=== PATIENT | male | born 1955 | race Caucasian/White ===

== ENCOUNTER 2021-09-11 10:00 | Emergency (ER) | payer MEDICARE, BC ==
[2021-09-11 10:14] VITALS: BP 138/92
--- NOTE | 2021-09-11 10:45 | ED Physician Documentation ---
History of Present Illness - Stated complaint Stated Complaint: LT EYE LID PX - Chief complaint Chief Complaint: Laceration - History obtained from History obtained from: Patient - History of Present Illness Timing: Today - Additonal information Additional information: 66-year-old male getting help from a friend working on his roof had a bar fall off of the roof and injured his left eyelid. He denies any change in his vision he denies any foreign body sensation to his eye. He has a small laceration to the eyelid and some swelling.He indicates he is up-to-date on his tetanus. Review of Systems Constitutional: denies: Fever Eyes: reports: Irritation. denies: Loss of vision, Decreased vision, Photophobia, Discharge Ears: denies: Ear pain Nose: denies: Congestion Throat: denies: Sore throat Respiratory: denies: Cough PD PAST MEDICAL HISTORY - Past Medical History Past Medical History: No - Past Surgical History Past Surgical History: Yes - Allergies Allergies/Adverse Reactions: Allergies Allergy/AdvReac Type Severity Reaction Status Date / Time No Known Drug Allergies Allergy Verified 09/11/21 10:14 - Social History Does the pt smoke?: No Smoking Status: Never smoker Does the pt drink ETOH?: No Does the pt have substance abuse?: No - Immunizations Immunizations are current?: Yes - POLST Patient has POLST: No PD ED PE NORMAL - Vitals Vital signs reviewed: Yes (Hypertensive mild) - General General: Alert and oriented X 3, No acute distress, Well developed/nourished - HEENT HEENT: PERRL, EOMI, Other (The globe is symmetric and without distortion of the iris. There is injection to the lateral sclera and overlying that there is a small laceration to the eyelid upper lateral. 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, No motor deficit, No sensory deficit, Normal speech Eye Opening: Spontaneous Motor: Obeys Commands Verbal: Oriented GCS Score: 15 - Psych Psych: Normal mood, Normal affect Results - Vitals Vitals: Vital Signs - 24 hr 09/11/21 10:10 Temperature 36.5 C Heart Rate 80 Respiratory 18 Rate Blood Pressure 138/92 H O2 Saturation 98 Procedures - Laceration (location) Left eyelid Length in cm: 1 Wound type: Stellate, Clean Neurovascular status: Sensory intact, Motor intact Wound preparation: Irrigated copiously NS, Wound explored, To the base Skin layer closure: Dermabond Other: Patient tolerated well, No complications, Neurovascular intact, Tetanus UTD PD MEDICAL DECISION MAKING - ED course Complexity details: considered differential, d/w patient ED course: 66-year-old male with a small laceration to the left eyelid with some swelling. No damage to the globe. This is repaired with Dermabond tolerated well. Departure - Departure Disposition: 01 Home, Self Care Clinical Impression: Eyelid laceration Qualifiers: Encounter type: initial encounter Laterality: left Qualified Code(s): S01.112A - Laceration without foreign body of left eyelid and periocular area, initial encounter Instructions: ED Laceration Facial Skin Glue Follow-Up: Your, doctor as needed [Other]
== END 2021-09-11 11:05 | disposition home or self-care (01) ==
LOC: ED 10:00
DX: S01.112A Laceration without foreign body of left eyelid and periocular area, initial encounter (principal); W20.8XXA Other cause of strike by thrown, projected or falling object, initial encounter; Y92.007 Garden or yard of unspecified non-institutional (private) residence as the place of occurrence of the external cause
CPT/HCPCS: 12011; 99281

== ENCOUNTER 2023-03-13 16:48 | Outpatient (CLI) | payer MEDICARE, BC | END 2023-03-13 23:59 | disposition critical access hospital (66) | LOC: EMS 16:48 | DX: R55 Syncope and collapse (principal); R42 Dizziness and giddiness; R25.3 Fasciculation; R32 Unspecified urinary incontinence | CPT/HCPCS: A0425; A0427 ==

== ENCOUNTER 2023-03-13 17:05 | Emergency (ER) | payer MEDICARE, BC ==
[2023-03-13] MEDS ORDERED: SODIUM CHLORIDE 0.9% 1,000 ML IV STA (17:33)
[2023-03-13] MEDS ORDERED: APIXABAN 5 MG TABLET PO STA (17:35)
[2023-03-13] MEDS ORDERED: iohexoL-300 100 ML VIAL ONE (17:42)
[2023-03-13 17:44] LABS: BASOPHILS % (AUTO) 0.4 %; EOSINOPHILS % (AUTO) 0.3 %; HCT - HEMATOCRIT 37.7 % (42.0-52.0); HGB - HEMOGLOBIN 12.4 g/dL (14.0-18.0); LYMPHOCYTES % (AUTO) 9.6 %; MEAN CORPUSCULAR HEMOGLOBIN 30.8 pg (27.0-31.0); MEAN CORPUSCULAR HGB CONC 32.9 g/dL (32.0-36.0); MEAN CORPUSCULAR VOLUME 93.8 fL (80.0-94.0); MONOCYTES # (AUTO) 1.4 10^3/uL (0.0-1.0); MONOCYTES % (AUTO) 13.5 %; NEUTROPHILS % (AUTO) 75.7 %; PLT - PLATELET COUNT 152 10^3/uL (130-450); RED BLOOD COUNT 4.02 10^6/uL (4.70-6.10); RED CELL DISTRIBUTION WIDTH 13.3 % (12.0-15.0); WHITE BLOOD COUNT 10.5 x10^3/uL (4.8-10.8)
--- NOTE | 2023-03-13 17:44 | ED Physician Documentation ---
History of Present Illness - Stated complaint Stated Complaint: SEIZURE - Chief complaint Chief Complaint: Neuro - History obtained from History obtained from: Patient, Family, EMS - History of Present Illness Timing: Today Pain level max: 0 Pain level now: 0 - Additonal information Additional information: Patient is a 68-year-old male brought in by EMS and his . He had a hip replacement yesterday at [facility]. He had been told to use a walker, stand and sit slowly and if he felt dizzy to sit down immediately. Patient had been up walking around in his kitchen when he felt lightheaded, dizzy went and sat back down in the chair and then felt his vision go down. His states that there may have been 1 to 2 seconds of jerking movements. She states he was unconscious for a few seconds. Currently asymptomatic. No fevers. No headache. No postictal period. Has never had a seizure before but has had syncopal events. No chest pain. No dyspnea. No nausea or vomiting. No sweating. Review of Systems Constitutional: denies: Fever, Chills Nose: denies: Rhinorrhea / runny nose, Congestion Throat: denies: Sore throat Cardiac: denies: Palpitations Respiratory: denies: Dyspnea, Cough GI: denies: Nausea, Vomiting, Diarrhea Skin: denies: Rash Musculoskeletal: denies: Neck pain, Back pain Neurologic: denies: Headache PD PAST MEDICAL HISTORY - Past Medical History Past Medical History: Yes Cardiovascular: High cholesterol - Past Surgical History Past Surgical History: Yes Ortho: Hip replacement - Allergies Allergies/Adverse Reactions: Allergies Allergy/AdvReac Type Severity Reaction Status Date / Time No Known Drug Allergies Allergy Verified 03/13/23 17:21 - Social History Does the pt smoke?: No Smoking Status: Never smoker Does the pt drink ETOH?: No Does the pt have substance abuse?: No - Immunizations Immunizations are current?: Yes - POLST Patient has POLST: No PD ED PE NORMAL - Vitals Vital signs reviewed: Yes - General General: Alert and oriented X 3, No acute distress, Well developed/nourished - HEENT HEENT: Atraumatic, PERRL, EOMI, Ears normal, Moist mucous membranes, Pharynx benign - Neck Neck: Supple, no meningeal sign, No bony TTP - Cardiac Cardiac: RRR, No murmur, Strong equal pulses - Respiratory Respiratory: No respiratory distress, Clear bilaterally - Abdomen Abdomen: Soft, Non tender, Non distended - Back Back: No CVA TTP, No spinal TTP - Derm Derm: Warm and dry - Extremities Extremities: No edema, No calf tenderness / cord - Neuro Neuro: Alert and oriented X 3, mental health aide 2-12 intact, No motor deficit, No sensory deficit, Normal speech Eye Opening: Spontaneous Motor: Obeys Commands Verbal: Oriented GCS Score: 15 - Psych Psych: Normal mood, Normal affect Results - Vitals Vitals: Vital Signs - 24 hr 03/13/23 03/13/23 03/13/23 17:10 18:54 21:00 Temperature 37.5 C Heart Rate 111 H 76 89 Respiratory 18 20 16 Rate Blood Pressure 152/87 H 142/89 H 136/89 H O2 Saturation 98 100 98 Oxygen O2 Source Room air - EKG (time done) 1713 EKG releavant findings:: EKG personally interpreted by author of this note. Relevant findings are: Rate: Rate (enter#) (101) Rhythm: Sinus tachycardia [place]: Normal Intervals: Prolonged [place] QRS: Normal Ischemia: Q waves (II, III, aVF), Non specific changes - Labs Labs: Laboratory Tests 03/13/23 03/13/23 03/13/23 17:35 17:35 17:35 WBC 10.5 RBC 4.02 L Hgb 12.4 L Hct 37.7 L MCV 93.8 MCH 30.8 MCHC 32.9 RDW 13.3 Plt Count 152 MPV 11.0 Neut # (Auto) 8.0 H Lymph # (Auto) 1.0 L [place] # (Auto) 1.4 H Eos # (Auto) 0.0 Baso # (Auto) 0.0 Absolute Nucleated RBC 0.00 Nucleated RBC % 0.0 Sodium 137 Potassium 4.0 Chloride 105 Carbon Dioxide 27 Anion Gap 5.0 L BUN 21 H Creatinine 1.1 Estimated GFR (MDRD) 66 L Glucose 149 H Calcium 8.0 L Total Bilirubin 0.6 AST 32 ALT 20 Alkaline Phosphatase 39 L Troponin I High Sens 6.8 Total Protein 5.9 L Albumin 3.0 L Globulin 2.9 Albumin/Globulin Ratio 1.0 Lipase 29 - Rads (name of study) head CT Relevant Findings:: Final report received, See rad report angio chest Relevant Findings:: Final report received, See rad report PD Medical Decision Making - ED course Complexity details: reviewed results, re-evaluated patient, considered differential (No ST elevation NV, no aortic dissection, no PE, no tension pneumothorax, no aortic aneurysm), d/w patient ED course: 68-year-old male with syncope versus seizure at home, history more consistent with syncope. Likely related to the postoperative period. Likely vasovagal. He was given IV fluids. Head CT does not show any evidence of mass lesion, no intracranial hemorrhage. CT scan does not show any evidence of pulmonary embolism. He was supposed to be on Eliquis after surgery but has not had it filled yet, therefore he was given Eliquis today. Does have a history of DVT in the past. No hypoxia or respiratory distress. Feels better after IV fluids. He does have hypocalcemia, but when corrected for his low albumin, estimated serum calcium is approximately 8.8. No EKG changes. No arrhythmia on telemetry. Ambulating well here. We will have him continue his current medications at home and follow-up with his doctor for further care. Patient and family counseled regarding signs and symptoms for which I believe and urgent re- evaluation would be necessary. Patient with good understanding of and agreement to plan and is comfortable going home at this time This document was made in part using voice recognition software. While efforts are made to proofread this document, sound alike and grammatical errors may occur. Departure - Departure Disposition: 01 Home, Self Care Clinical Impression: Dehydration Syncope Qualifiers: Syncope type: unspecified Qualified Code(s): R55 - Syncope and collapse Condition: Good Instructions: ED Syncope Vasovagal, ED Fainting Unkn Cause Follow-Up: JORDAN KRAMER MD [Primary Care Provider] - Within 1 week Comments: Please follow-up with your doctor for further care. Your EKG and laboratory testing did not show any significant abnormalities today other than dehydration. Your calcium levels were slightly low as well, but when corrected for your protein levels, they are on the lower end of normal. This should be followed by your doctor. There are no abnormalities on CT scan today. We did a CT scan of your head as well as your chest. There is no evidence of blood clot in your lungs. Please return if you worsen. Please continue your current medications at home. Discharge Date/Time: 03/13/23 21:19
[2023-03-13 17:55] LABS: BILIRUBIN,TOTAL 0.6 mg/dL (0.2-1.0); CREATININE 1.1 mg/dL (0.6-1.2); TOTAL PROTEIN 5.9 g/dL (6.7-8.2)
[2023-03-13] MEDS ORDERED: ACETAMINOPHEN 325 MG TABLET PO STA (17:59)
--- NOTE | 2023-03-13 20:59 | CT Report ---
PROCEDURE: ANGIO CHEST W/WO INDICATIONS: post op syncope CONTRAST: Omni 300 80ml TECHNIQUE: After the administration of intravenous contrast, 2 mm axial images were acquired from the pulmonary apices to the posterior costophrenic angles during the arterial phase. In addition, 1 mm lung kernel and 5 mm soft tissue kernel reconstructions were performed. 3-dimensional coronal oblique maximum int ensity projection (MIP) reformats, 8 mm axial MIP, and 5 mm coronal and sagittal MPR reformats were t hen performed through the thorax. For radiation dose reduction, the following was used: automated exp osure control, adjustment of mA and/or kV according to patient size. COMPARISON: None. FINDINGS: Image quality: Mildly reduced by patient motion during image acquisition through the lower third of t he lung parenchyma. Large vessels: No filling defects within the opacified pulmonary arteries, accounting for motion and contrast timing. No evidence of acute aortic syndrome or aortic aneurysm. Lungs and pleura: No consolidation. No pleural effusions. No pneumothorax. No suspicious pulmonary n odules which require follow up. Mediastinum: Heart size is normal. No pericardial effusion. No large vessel abnormality. No mediastin al adenopathy by size criteria. Chest wall and lower neck: Thyroid is unremarkable. No axillary or supraclavicular adenopathy by size . Bones: No aggressive osseous abnormality. Upper Abdomen: Unremarkable. IMPRESSION: No definite pulmonary embolus. There is mild patient motion during image acquisition through the lowe r third of the lung parenchyma, which mildly degrades diagnostic accuracy of this study. No central p ulmonary embolus is suspected but a small far peripheral pulmonary embolus conceivably would not be d etected by this study. No alveolar consolidation or aspiration is seen. Reviewed by: Paul Mendez MD on 03/13/2023 8:57 PM PDT Approved by: Paul Mendez MD on 03/13/2023 8:57 PM PDT Station ID: [id number]
--- NOTE | 2023-03-13 20:59 | CT Report ---
PROCEDURE: HEAD WO INDICATIONS: seizure vs syncope TECHNIQUE: Noncontrast 4.5 mm thick angled axial sections acquired from the foramen magnum to the vertex. For r adiation dose reduction, the following was used: automated exposure control, adjustment of mA and/or kV according to patient size. COMPARISON: None. FINDINGS: Image quality: Excellent. CSF spaces: Basal cisterns are patent. No extra-axial fluid collections. Ventricles are normal in size and shape. Brain: No midline shift. No intracranial masses or hemorrhage. Flynn-white matter interface is norm al. Skull and face: Calvarium and visualized facial bones are intact, without suspicious lesions. Sinuses: Visualized sinuses and mastoids are clear. IMPRESSION: Normal for age, no trauma found. Etiology of seizure/syncopal episode is not identified. Reviewed by: Paul Mendez MD on 03/13/2023 8:58 PM PDT Approved by: Paul Mendez MD on 03/13/2023 8:58 PM PDT Station ID: [id number]
[2023-03-13 21:01] VITALS: BP 136/89
[2023-03-14] MEDS ORDERED: iohexoL-300 100 ML VIAL IVP ONE (00:15)
== END 2023-03-13 21:19 | disposition home or self-care (01) ==
LOC: EDUNIT# → ED 17:05
DX: R55 Syncope and collapse (principal); E86.0 Dehydration; E78.00 Pure hypercholesterolemia, unspecified
CPT/HCPCS: 36415; 70450; 71275; 80053; 83690; 84484; 85025; 93005; 96360; 99284; A9270; Q9967